=== PATIENT | female | born 1955 | race African-American/Black ===

== ENCOUNTER → 2018-01-31 | Outpatient (CLI) | payer OTHER | LOC: MAMMO 10:06 | PROVIDERS: ATTEND Family Medicine | DX: Z12.31 Encounter for screening mammogram for malignant neoplasm of breast (principal) | CPT/HCPCS: 77067 ==

== ENCOUNTER 2018-08-24 09:07 | Emergency (ER) | payer BC, OTHER ==
[~2018-08-24] VITALS: Ht 165.1 cm; Wt 104.8 kg
--- OUTSIDE RECORDS SUMMARY | 2018-08-24 09:10 | XMS REPORT ---
Author [facility] Address Unknown Phone Unavailable Care Team Providers Care Circular Saw Operator Name Role Phone Karolyn ORELLANA (TREVOR) GAYLE Unavailable Unavailable Problems This patient has no known problems. Allergies, Adverse Reactions, Alerts This patient has no known allergies or adverse reactions. Medications This patient has no known medications. Results Test Description Test Time Test Comments Text Results Atomic Results Result Comments MAMMOGRAPHY DIGITAL SCR BILAT 2018-01-31 10:44:00 [place] [address] Patient Name: KENNEDY SÁNCHEZ MR #: [id number] : 1955 Age/Sex: 62/F Req #: [id number] Adm Physician: Ordered by: ESTEBAN LEVINE, GAYLE Parr MD Report #: [id number] Location: MAMMO Room/Bed: Procedure: [id number] MG/MAMMOGRAPHY DIGITAL SCR BILAT Exam Date: 01/31/18 Exam Time: 1016 REPORT STATUS: Signed #[id number] - MGSCRBIL #BILATERAL DIGITAL SCREENING MAMMOGRAM WITH CAD: 01/31/2018 CLINICAL: Routine screening. Comparison is made to exams dated: 01/22/2017 mammogram and 01/20/2016 mammogram - [facility]. Current study contains 5 films. The tissue of both breasts is predominantly fatty. Current study was also evaluated with a Computer Aided Detection (CAD) system. There is a benign calcification in both breasts. There also are benign lymph nodes in both breasts. There is a mole marker on the left breast. No significant masses, calcifications, or other findings are seen in either breast. There has been no significant interval change. IMPRESSION: BENIGN There is no mammographic evidence of malignancy. A 1 year screening mammogram is recommende d. The patient will be notified by letter of the results. Enoch guevara/gokul:02/01/2018 13:57:13 Demonstrator Sales: Jia JAMES)([place]), [facility] letter sent: Compared to Prior B9 Mammogram BI-RADS: 2 Benign Dictated By: ENOCH VAUGHAN DO [id number] Transcribed By: GOKUL on 02/01/18 2684 COPY TO: GAYLE ORELLANA MD (BUDDY)
[2018-08-24] MEDS ORDERED: SODIUM CHLORIDE 0.9% 1000ML 1,000 ML IV STA (09:36)
[2018-08-24 10:00] LABS: BASOPHILS % 0.7 % (0.0-1.0); EOSINOPHILS # (AUTO) 0.1 (0.0-0.4); EOSINOPHILS % 0.9 % (0.0-6.0); HEMATOCRIT 37.8 % (34.2-44.1); LYMPHOCYTES # (AUTO) 1.7 (1.0-3.2); MEAN CORPUSCULAR HGB CONC 31.7 g/dL (31-35); MEAN CORPUSCULAR VOLUME 75.4 fL (81-99); MONOCYTES # (AUTO) 0.3 (0.2-0.8); MONOCYTES % 5.9 % (4.4-11.3); NEUTROPHILS # (AUTO) 3.6 (2.1-6.9); NEUTROPHILS % 63.3 % (38.7-80.0); PLATELET COUNT 300 x10e3/uL (140-360); RED BLOOD COUNT 5.01 x10e6/uL (3.6-5.1); RED CELL DISTRIBUTION WIDTH 15.9 % (11.7-14.4)
[2018-08-24 10:07] LABS: INR 0.95; PROTHROMBIN TIME 13.5 seconds (11.9-14.5)
[2018-08-24 10:08] LABS: PARTIAL THROMBOPLASTIN TIME 25.2 seconds (23.8-35.5)
[2018-08-24 10:09] LABS: BILIRUBIN,URINE NEGATIVE (NEGATIVE); CLARITY,URINE HAZY (CLEAR); COLOR,URINE YELLOW (YELLOW); KETONES,URINE NEGATIVE (NEGATIVE); LEUKOCYTE ESTERASE ,URINE NEGATIVE (NEGATIVE); NITRITE,URINE NEGATIVE (NEGATIVE); PROTEIN,URINE DIPSTICK NEGATIVE (NEGATIVE); URINE UROBILINOGEN 0.2 mg/dL (0.2 - 1)
[2018-08-24 10:13] LABS: BACTERIA,URINE FEW /HPF; EPITHELIAL CELLS,URINE FEW /LPF; RBC,URINE 0-5 /HPF (0-5); WBC,URINE (MAN) 0-5 /HPF (0-5)
[2018-08-24 10:16] LABS: ALANINE AMINOTRANSFERASE 15 IU/L (0-55); ALBUMIN 3.6 g/dL (3.5-5.0); ALBUMIN/GLOBULIN RATIO 0.9 (0.8-2.0); ALKALINE PHOSPHATASE 125 IU/L (40-150); ANION GAP 14.6 mmol/L (8-16); BLOOD UREA NITROGEN 9 mg/dL (7-26); BUN/CREATININE RATIO 9 (6-25); CALCIUM 9.2 mg/dL (8.4-10.2); CARBON DIOXIDE 26 mmol/L (22-29); CHLORIDE 102 mmol/L (98-107); CREATINE KINASE 205 IU/L (29-168); EST GLOMERULAR FILTRATION RATE > 60 ML/MIN (60-); GLUCOSE 204 mg/dL (74-118); MAGNESIUM 2.2 MG/DL (1.3-2.1); POTASSIUM 3.6 mmol/L (3.5-5.1); SODIUM 139 mmol/L (136-145)
--- NOTE | 2018-08-24 10:24 | Diagnostic Imaging Report ---
EXAMINATION: CHEST 2 VIEWS INDICATION: ^PALPITATIONS ^[id number] ^0950 COMPARISON: None FINDINGS: PA and lateral views TUBES and LINES: None. LUNGS: Lungs are well inflated. There is no evidence of pneumonia or pulmonary edema. PLEURA: Mild eventration of the right diaphragm. No pleural effusion or pneumothorax. HEART AND MEDIASTINUM: The cardiomediastinal silhouette is unremarkable. BONES AND SOFT TISSUES: Degenerative changes of the spine. No focal osseous lesions. Soft tissues are unremarkable. UPPER ABDOMEN: No free air under the diaphragm. IMPRESSION: No acute thoracic abnormality. Signed by: Dr. Boston Jones MD on 08/24/2018 10:21 AM
[2018-08-24 10:36] LABS: THYROID STIMULATING HORMONE 0.714 uIU/mL (0.350-4.940)
[2018-08-24 11:07] VITALS: BP 146/81
== END 2018-08-24 11:19 | disposition home or self-care (01) ==
LOC: ER 09:07
DX: R00.2 Palpitations (principal); I10 Essential (primary) hypertension
CPT/HCPCS: 36415; 71046; 80053; 81001; 82550; 82553; 83735; 83880; 84443; 84484; 85025; 85610; 85730; 87086; 93005; 99284; J7030

== ENCOUNTER → 2019-04-14 | Outpatient (CLI) | payer BC ==
--- NOTE | 2019-04-16 11:56 | Diagnostic Imaging Report ---
#[id number] - MGSCRBIL #BILATERAL DIGITAL SCREENING MAMMOGRAM WITH CAD: 04/14/2019 CLINICAL: Routine screening. Comparison is made to exams dated: 01/31/2018 mammogram and 01/22/2017 mammogram - [facility]. The tissue of both breasts is predominantly fatty. Current study was also evaluated with a Computer Aided Detection (CAD) system. There is a benign calcification in both breasts. There also are benign lymph nodes in both breasts. No significant masses, calcifications, or other findings are seen in either breast. There has been no significant interval change. IMPRESSION: BENIGN There is no mammographic evidence of malignancy. A 1 year screening mammogram is recommended. The patient will be notified by letter of the results. IGNACIA rodney/gokul:04/16/2019 09:43:23 Reception Clerk: Jia LEBRON(R)(M), [facility] letter sent: Compared to Prior B9 Mammogram BI-RADS: 2 Benign
== END ==
LOC: MAMMO 10:38
PROVIDERS: ATTEND Family Medicine
DX: Z12.31 Encounter for screening mammogram for malignant neoplasm of breast (principal)
CPT/HCPCS: 77067

== ENCOUNTER 2019-05-12 08:29 | Inpatient (IN) | payer BC ==
--- NOTE | 2019-05-09 13:41 | Diagnostic Imaging Report ---
EXAMINATION: CHEST 2 VIEWS INDICATION: Pre-operative COMPARISON: Chest radiograph of 08/24/2018 FINDINGS: LINES/TUBES:None LUNGS:The lungs are well-inflated. No focal consolidation or pulmonary edema. PLEURA:No pleural effusion or pneumothorax. MEDIASTINUM:The cardiomediastinal silhouette appears normal in size and shape. Atherosclerotic calcifications of the thoracic aorta. BONES/SOFT TISSUES:No acute osseous injury. Degenerative changes of the visualized spine. ABDOMEN:No free air under the diaphragm. IMPRESSION: No focal pneumonia or pulmonary edema. Signed by: Aldo Zayas MD on 05/09/2019 1:38 PM
[2019-05-09 14:13] LABS: ANION GAP 13.5 mmol/L (8-16); BLOOD UREA NITROGEN 13 mg/dL (7-26); BUN/CREATININE RATIO 14 (6-25); CARBON DIOXIDE 30 mmol/L (22-29); CHLORIDE 97 mmol/L (98-107); CREATININE, SERUM 0.96 mg/dL (0.57-1.11); EST GLOMERULAR FILTRATION RATE > 60 ML/MIN (60-); GLUCOSE 95 mg/dL (74-118); SODIUM 138 mmol/L (136-145)
[2019-05-09 14:16] LABS: POTASSIUM 2.5 mmol/L (3.5-5.1)
[~2019-05-12] VITALS: Ht 165.1 cm; Wt 85.3 kg
[~2019-05-12 08:29] MED LIST: Diltiazem PO; IBUPROFEN400 MG PO; NORCO 5-325 TA1 EACH PO; OXYBUTYNIN CHLOR5 MG PO; ROPIVACAINE 246.25 MG, EPINEPHRINE HCL 1:1000 1ML 0.5 MG, CLONIDINE HCL 0.08 MG, KETORO... INJ ONE; VALSARTAN-HCTZ1 EAC3 PEG
[2019-05-12] MEDS ORDERED: TYLENOL PO (09:00)
[2019-05-12] MEDS ORDERED: DEXAMETHASONE SOD PHOS 10 MG/1 ML VIAL ONE (09:11)
[2019-05-12] MEDS ORDERED: CELECOXIB 200 MG CAP ONE (09:11)
[2019-05-12] MEDS ORDERED: GABAPENTIN 300 MG CAP ONE (09:12)
[2019-05-12] MEDS ORDERED: CEFAZOLIN SOD 1 GM/NS 50ML 50 ML IV ONE ×2 (09:13→09:29)
[2019-05-12] MEDS ORDERED: BUPIVACAINE 7.5MG/ML /DEXTROSE 82.5MG/ML 2 ML AMP INJ ONE ×2 (09:23→11:13)
[2019-05-12 09:54] LABS: ANION GAP 18.1 mmol/L (8-16); BLOOD UREA NITROGEN 12 mg/dL (7-26); BUN/CREATININE RATIO 13 (6-25); CALCIUM 10.1 mg/dL (8.4-10.2); CARBON DIOXIDE 25 mmol/L (22-29); CHLORIDE 99 mmol/L (98-107); CREATININE, SERUM 0.89 mg/dL (0.57-1.11); EST GLOMERULAR FILTRATION RATE > 60 ML/MIN (60-); GLUCOSE 96 mg/dL (74-118); POTASSIUM 3.1 mmol/L (3.5-5.1); SODIUM 139 mmol/L (136-145)
[2019-05-12] MEDS ORDERED: MORPHINE SULFATE/PF 1 MG/1 ML 10ML VIAL ONE (10:17)
[2019-05-12] MEDS: SODIUM CHLORIDE 0.9% 1000ML 1,000 ML IV SCH ×2 (12:38→22:38)
[2019-05-12] MEDS ORDERED: ONDANSETRON HCL INJ 2MG/ML 2ML 2 MG/ML VIAL IV PRN (12:45)
[2019-05-12] MEDS ORDERED: HYDROCODONE/APAP 5MG-325MG TAB PO PRN (12:45)
[2019-05-12] MEDS ORDERED: PROMETHAZINE HCL (IM) 25 MG/ML VIAL IM PRN (12:45)
[2019-05-12] MEDS ORDERED: KETOROLAC TROMETHAMINE 30 MG/ML VIAL IV PRN (12:45)
[2019-05-12] MEDS ORDERED: DIPHENHYDRAMINE HCL INJ 50 MG/ML VIAL IM/IV PRN (12:45)
[2019-05-12] MEDS ORDERED: DOCUSATE SODIUM 100 MG CAP PO PRN (12:45)
[2019-05-12] MEDS ORDERED: HYDROCODONE/APAP 7.5MG-325MG 1 EA TAB PO PRN (12:45)
[2019-05-12] MEDS ORDERED: ACETAMINOPHEN 650 MG SUPP PR PRN (12:45)
--- NOTE | 2019-05-12 13:09 | Diagnostic Imaging Report ---
EXAMINATION: PELVIS AP 1-2 VIEWS INDICATION: Postoperative COMPARISON: None FINDINGS: Portable AP image of the left pelvis demonstrates immediate postoperative findings of left total hip replacement. Alignment is anatomic. No unexpected fracture. Postoperative subcutaneous soft tissue emphysema. Surgical skin steffany overlie the left hip soft tissues. Moderate degenerative changes of the circle right hip. IMPRESSION: Anatomic alignment status post left total hip replacement. Moderate degenerative changes of the circle right hip. Signed by: Aldo Zayas MD on 05/12/2019 1:05 PM
[2019-05-12] MEDS ORDERED: ONDANSETRON HCL INJ 2MG/ML 2ML 2 MG/ML VIAL ONE (15:10)
[2019-05-12] MEDS ORDERED: FENTANYL CITRATE/PF 100MCG/2 ML INJ ONE ×2 (15:47→18:01)
[2019-05-12] MEDS ORDERED: CELECOXIB 100 MG CAP PO SCH (17:00)
--- NOTE | 2019-05-12 17:00 | NUR ---
RECEIVED TO RM AAOX3 NO DISTRESS NOTED, UPDATED ON POC VOICED UNDERSTANDING, RADHA PAIN AT THIS TIME, IVF INFUSING TO R HAND 20G NO SS OF INFILTRATION NOTED, DSG TO LEFT HIP C/D/I, NO OTHER CO VOICED CALL LIGHT IN REACH WILL CONTINUE TPO MONITOR
--- NOTE | 2019-05-12 17:42 | NUR ---
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 [place] AND WANTS TO MAKE SURE HER AUNT'S DISCHARGE PLANS ARE ARRANGED STATES THAT IN ADDITION TO THE HOME HEALTH, PT AND DME ALREADY ORDERED BY PT HER AUNT NEEDS A HOME HEALTH AID AND A TUB TRANSFER BENCH (BECAUSE THEY ONLY HAVE A STEP IN BATHT[place]) EXPLAINED TO HER THAT I WILL ASK DR MARINO FOR THOSE ORDERS ALSO STATES THAT PT WILL BE AT HOME ALONE DURING THE DAY HER SON AND DTR IN LAW BOTH WORK RY[facility] LERMA 17:46 CM CALLED INTO PT'S ROOM BY [facility] 2 NEICES PRESENT, RYANNE JACQUES AND DTR IN LAW CONFIRMED ADDRESS ON FACESHEET ASIA JACQUES'S ADDRESS IS: [id number] [address] [facility] [id number] THEY ARE CONCERNED THAT PT WILL BE ALONE DURING THE DAY NO ONE IN THE FAMILY WILL BE ABLE TO STAY WITH PT DURING THE DAY OFFERED LIST OF PROVIDER SERVICES STARTING AT APPROX 20 DOLLARS PER HR AND THEY DECLINED EXPLAINED THAT WE WILL SEE HOW PT DOES WITH P.T. TOMORROW AND DISCUSS WITH HERMELINDO NINA FOR DR MARINO PT AND FAMILY AGREEABLE
[2019-05-12] MEDS: ASPIRIN 325 MG TAB PO SCH (17:50)
[2019-05-12] MEDS: CELECOXIB 200 MG CAP PO SCH (17:50)
[2019-05-12] MEDS: CEFAZOLIN SOD 1 GM/NS 50ML 50 ML IV SCH (17:51)
[2019-05-12] MEDS ORDERED: MIDAZOLAM HCL 2 MG/2 ML VIAL ONE (18:01)
--- NOTE | 2019-05-12 18:20 | Operative Report ---
DATE OF PROCEDURE: 05/12/2019 SURGEON: Bradford Connors MD INTAKE CLINICIAN: Cameron Hardy, certified PA. PREOPERATIVE DIAGNOSIS: Osteoarthritis, left hip. POSTOPERATIVE DIAGNOSIS: Osteoarthritis, left hip. PROCEDURE: Left total hip arthroplasty. INDICATIONS: The patient is a 63-year-old lady who has end-stage arthritis of her left hip. The findings and options have been discussed. She has failed conservative management. She would like to proceed with a left total hip replacement. The risks and benefits of the surgery have been thoroughly explained. All of her questions have been answered. She states she understands and wishes to proceed. PROCEDURE IN DETAIL: The patient was brought to the operating room and given a spinal anesthetic. She received prophylactic antibiotics and tranexamic acid in the holding area. She was positioned in the right lateral decubitus position. Her left hip was prepped and draped in a sterile manner. A preoperative time-out was performed. A posterior approach was made to the left hip. Hemostasis was obtained with electrocautery. A deep self-retaining Charnley retractor was carefully placed. Care was taken to avoid injury to the sciatic nerve. The posterior capsule was carefully exposed. Further hemostasis was obtained with electrocautery. The short external rotators were released and a capsulotomy was performed. Clear synovial fluid was noted to be in the joint. The hip was dislocated and an oscillating saw was used to resect the femoral head. Complete loss of articular cartilage was noted. Acetabular retractors were carefully placed. A calcified labral remnant was excised with a long-handled knife. The true floor of the acetabulum was established with a 46 mm reamer. The socket was then sequentially reamed up to 51 mm. A couple of moderate-sized subchondral cysts in the superior dome of the socket were debrided with a curved curette and packed with autologous bone graft taken from the humeral head. A Filipe Biomet 52 mm outer diameter OsseoTi socket was then impacted into place. The hip had been thoroughly irrigated several times with a shower tip pulsatile lavage. Fixation was augmented with 2 cancellous screws placed into the ilium. A highly cross-linked polyethylene liner with no posterior elevation and a 36 mm inner diameter was then impacted into place. Care was taken to make sure that there was no evidence of soft tissue interposition. The prominent marginal osteophytes were then removed with a curved osteotome or a rongeur forceps. The socket was packed with a moistly soaked lap sponge. Attention was directed towards the proximal femur. A box cutting osteotome and taper pin reamer were used to establish entry to the femoral canal. The Filipe Biomet taper lock broaches were impacted. A size 8 stem had good canal fill and rotational stability for trial reduction. A standard 36 mm head was felt to provide appropriate soft tissue balancing, anabaptist of limb length and rotate and stability. The trial implants were removed. The hip was further irrigated with a shower tip pulsatile lavage. A 100 mL premixed pericapsular CHERRY injection was placed around the surrounding soft tissue. The femoral stem was seated. The trunnion was cleaned and dried. The femoral head and standard neck were seated onto the stem. A final reduction was performed. The posterior capsule was well preserved and was repaired with #2 Ethibond. A 500 mg of vancomycin powder was sprinkled deep into the wound. The proximal tensor fascia and gluteal fascia were closed with #2 Ethibond. The skin was closed with subcuticular Vicryl and steffany. A sterile bandage was applied. The patient was returned to the supine position. She was transported to the recovery room in stable condition. Blood loss was approximately 150 mL and all needle and sponge counts were correct. Bradford Connors MD DR/MARISELA /[id number]
[2019-05-12] MEDS: ACETAMINOPHEN 1000 MG/100 ML IV SCH ×2 (18:24→23:38)
[2019-05-12 18:30] VITALS: BP 114/64
[2019-05-12 20:00] VITALS: BP 120/85
[2019-05-12] MEDS ORDERED: ZOLPIDEM TARTRATE 5 MG TAB PO PRN (21:00)
[2019-05-12 22:46] VITALS: BP 114/64
[2019-05-13] VITALS: BP 94/67
[2019-05-13] MEDS: CEFAZOLIN SOD 1 GM/NS 50ML 50 ML IV SCH ×2 (02:16→09:42)
[2019-05-13 04:00] VITALS: BP 119/81
--- NOTE | 2019-05-13 05:32 | Consultation ---
DATE OF CONSULTATION: REASON FOR CONSULTATION: Postop medical management. HISTORY OF PRESENT ILLNESS: The patient is a 63-year-old lady, status post left hip arthroplasty, who is doing well postoperatively with minimal pain. REVIEW OF SYSTEMS: Denies any chest pain, fever, chills, nausea, vomiting, headache, shortness of breath, or dizziness. PAST MEDICAL HISTORY: Significant for hypertension, osteoarthritis. MEDICATIONS: See MAR. ALLERGIES: NONE. SOCIAL HISTORY: Nonsmoker, nondrinker. She works full-time, who is . FAMILY HISTORY: Noncontributory. PHYSICAL EXAMINATION: VITAL SIGNS: Temperature is 97.0, pulse 91, blood pressure , sats 98% on room air. GENERAL: No apparent distress, lying in bed. CARDIOVASCULAR: Regular rate and rhythm. NECK: Supple. No lymphadenopathy. LUNGS: Clear to auscultation bilaterally. ABDOMEN: Good bowel sounds. Soft, nontender. EXTREMITIES: No clubbing or cyanosis. NEUROLOGIC: Nonfocal. ASSESSMENT AND PLAN: 1. Status post left hip arthroplasty. Continue with physical therapy. 2. Left hip pain. Continue with pain management. 3. Anemia. Check a CBC. 4. Hypertension. We will continue to monitor off blood pressure medicines. Her blood pressure is a little low at this moment. 5. Hypokalemia. We will recheck levels. Please see also chart for full details. MD ABEL Eubanks/MARISELA /[id number]
[2019-05-13] MEDS: ACETAMINOPHEN 1000 MG/100 ML IV SCH ×2 (05:55→12:58)
[2019-05-13 07:11] LABS: HEMATOCRIT 32.7 % (34.2-44.1); HEMOGLOBIN 10.3 g/dL (12.0-16.0)
[2019-05-13 07:49] LABS: ALANINE AMINOTRANSFERASE 14 IU/L (0-55); ALBUMIN 2.9 g/dL (3.5-5.0); ALBUMIN/GLOBULIN RATIO 0.8 (0.8-2.0); ALKALINE PHOSPHATASE 87 IU/L (40-150); ANION GAP 17.8 mmol/L (8-16); BLOOD UREA NITROGEN 21 mg/dL (7-26); BUN/CREATININE RATIO 20 (6-25); CALCIUM 8.8 mg/dL (8.4-10.2); CARBON DIOXIDE 24 mmol/L (22-29); CHLORIDE 99 mmol/L (98-107); CREATININE, SERUM 1.07 mg/dL (0.57-1.11); EST GLOMERULAR FILTRATION RATE > 60 ML/MIN (60-); GLUCOSE 143 mg/dL (74-118); MAGNESIUM 1.8 MG/DL (1.3-2.1); SODIUM 138 mmol/L (136-145)
[2019-05-13 08:00] LABS: POTASSIUM 2.8 mmol/L (3.5-5.1)
--- NOTE | 2019-05-13 08:00 | NUR ---
The pt. called to report pain level 3/10 and was medicated with 1 pain pill. 0813 The lab called to report critical potassium level 2.8 and a call was placed to the for orders.
[2019-05-13] MEDS ORDERED: POTASSIUM CHLORIDE 20 MEQ TAB CR PO SCH (08:30)
[2019-05-13 08:57] VITALS: BP 112/75
[2019-05-13] MEDS: ASPIRIN 325 MG TAB PO SCH ×2 (09:07→16:56)
[2019-05-13] MEDS: CELECOXIB 200 MG CAP PO SCH ×2 (09:07→16:56)
[2019-05-13] MEDS: SODIUM CHLORIDE 0.9% 1000ML 1,000 ML IV SCH (09:07)
[2019-05-13] MEDS: POTASSIUM CHLORIDE 20 MEQ TAB CR PO SCH ×2 (09:08→12:58)
[2019-05-13 09:52] VITALS: BP 112/75
[2019-05-13] MEDS ORDERED: ACETAMINOPHEN 1000 MG/100 ML IV PRN (12:45)
[2019-05-13 13:01] VITALS: BP 102/74
--- NOTE | 2019-05-13 14:05 | NUR ---
Visit made by the Spiritual Care Department Pastoral Visitor, Maria Teresa Lacey. PV provided pastoral presence, prayer, hospitality, and supportive listening. Pastoral Visitor informed pt/family of the scope of [employer] and availability. VANESSA KIM Numerical Control Nesting Operator Spiritual Care Department O: [phone] Pager: [phone] ([phone] + number calling from)
--- NOTE | 2019-05-13 14:25 | NUR ---
LORRAINE SPOKE WITH DR MARINO RE: TUB SLIDE BENCH AND HOME HEALTH AID REQUESTED BY PT AND FAMILY DR MARINO STATES THAT T[facility] IS NOT NECESSARY AND REQUIRES 2 PEOPLE TO USE AND WOULD POSE A HIGH RISK OF INJURY HOME HEALTH AID NOT NECESSARY TO ASSIST WITH ADL'S PT CAN USE HER 3 IN 1 TO SHOWER WHEN HER FAMILY IS THERE WITH HER PT UNDERSTANDS. CM ALSO CALLED PT'S DTR IN LAW AND EXPLAINED ABOVE. DC PLANS PRE-ARRANGED BY STELLA AT DR PARKER OFFICE AND FINALIZED BY ME LORRAINE PROVIDED PT WITH ROLLING WALKER PRIOR TO DC 3 IN 1 BEING DELIVERED BY [email or web address] [phone] ; SPOKE WITH [facility] WITH [employer] AT [phone] GAVE PT MY CARD FOR QUESTIONS CONCERNS GAVE [employer] AND [employer] THE ADDRESS WHERE PT IS GOING TO UPON DISCHARGE: [place] [id number] [facility] [id number] COPY OF CHOICE LETTER GIVEN TO PT ORIGINAL IN CHART
[2019-05-13 17:17] VITALS: BP 103/75
== END 2019-05-13 18:50 | disposition home health service (06) | DRG 470 ==
LOC: OR 08:29 → PACU V 12:39 → MED/SURG 16:55
PROVIDERS: ADMIT Specialist; ATTEND Specialist
PROC: 0SR90JZ Replacement of Right Hip Joint with Synthetic Substitute, Open Approach (ICD-10-PCS; principal; 2019-05-12 11:08)
DX: M16.12 Unilateral primary osteoarthritis, left hip (principal); I10 Essential (primary) hypertension; D64.9 Anemia, unspecified; E87.6 Hypokalemia; E78.2 Mixed hyperlipidemia
CPT/HCPCS: 36415; 71046; 72170; 80048; 80053; 83735; 85014; 85018; 86850; 86900; 86920; 93005; 97139; J0171; J0690; J1100; J1200; J1885; J2250; J2405; J2795; J3010; J7030